=== PATIENT | male | born 1965 | race Caucasian/White ===

== ENCOUNTER 2024-03-30 04:21 | Day surgery (SDC) | payer OTHER ==
[2024-03-25 09:50] VITALS: BMI 30.7
[2024-03-30 08:32] VITALS: TEMP 98.5
[2024-03-30 09:14] VITALS: RESP 12
[2024-03-30 09:17] VITALS: BP 106/72; PULSE 64
== END 2024-03-30 09:11 | disposition home or self-care (01) ==
LOC: JASU-ENDO 04:21
PROVIDERS: ATTEND Internal Medicine Gastroenterology
PROC: 0DBQ8ZX Excision of Anus, Via Natural or Artificial Opening Endoscopic, Diagnostic (ICD-10-PCS; principal; 2024-03-30 08:00)
DX: Z12.11 Encounter for screening for malignant neoplasm of colon (principal); K62.0 Anal polyp; Z86.010 Personal history of colon polyps
CPT/HCPCS: 88305-TC